=== PATIENT | female | born 1975 | race Hispanic/Latino ===

== ENCOUNTER 2022-03-27 13:20 | Emergency (ER) | payer OTHER ==
[~2022-03-27] VITALS: Ht 157.5 cm; Wt 63.5 kg
[2022-03-27 14:28] LABS: APPEARANCE,URINE CLEAR (CLEAR); BILIRUBIN,URINE NEGATIVE (NEGATIVE); COLOR,URINE YELLOW (YELLOW); GLUCOSE, URINE (UA) NEGATIVE (NEGATIVE); KETONES,URINE NEGATIVE (NEGATIVE); LEUKOCYTE ESTERASE ,URINE NEGATIVE Leu/uL (NEGATIVE); NITRATE,URINE NEGATIVE (NEGATIVE); OCCULT BLOOD,URINE NEGATIVE (NEGATIVE); PROTEIN,URINE NEGATIVE (NEGATIVE); UROBILINOGEN,URINE 0.2 mg/dL (0.2-1.0)
[2022-03-27 14:34] LABS: BASOPHILS % (AUTO) 0.8 % (0.0-5.0); EOSINOPHILS % (AUTO) 0.5 % (0.0-8.0); HEMATOCRIT 34.3 % (36-48); MEAN CORPUSCULAR HEMOGLOBIN 28.6 pg (27.0-33.0); MEAN CORPUSCULAR HGB CONC 32.7 g/dL (32.0-36.0); MEAN CORPUSCULAR VOLUME 87.5 fL (79-99); MONOCYTES % (AUTO) 6.5 % (3.0-13.0); NEUTROPHILS % (AUTO) 81.8 % (40.0-77.0); PLATELET COUNT (AUTO) 322 K/uL (130-400); RED BLOOD CELL COUNT(AUTO) 3.92 MIL/uL (4.00-5.50); WHITE BLOOD COUNT (AUTO) 10.1 K/uL (4.8-10.8)
[2022-03-27 14:46] LABS: CREATININE 0.7 mg/dL (0.5-1.5); POTASSIUM 3.7 mmol/L (3.5-5.1)
[2022-03-27 14:51] LABS: ALBUMIN 3.9 g/dL (3.5-5.0); TOTAL PROTEIN, SERUM 7.8 g/dL (6.0-8.3)
[2022-03-27] MEDS ORDERED: BENZ-39 PO (15:00)
[2022-03-27] MEDS ORDERED: IBUP-2070 PO (15:00)
[2022-03-27] MEDS ORDERED: MECL-226 PO (15:00)
[2022-03-27] MEDS ORDERED: ONDA4TAB10 PO (15:00)
[2022-03-27] MEDS ORDERED: OSEL75 PO (15:00)
== END 2022-03-27 15:09 | disposition home or self-care (01) ==
LOC: EDH 13:20
DX: J10.1 Influenza due to other identified influenza virus with other respiratory manifestations (principal); B34.9 Viral infection, unspecified; R42 Dizziness and giddiness; R11.2 Nausea with vomiting, unspecified; Z20.822 Contact with and (suspected) exposure to COVID-19
CPT/HCPCS: 99284; 87635; 80053; 85025; 87804 ×2; 81003; 36415; 93005; C9803

== ENCOUNTER 2022-05-24 18:56 | Emergency (ER) | payer OTHER ==
[~2022-05-24] VITALS: Ht 157.5 cm; Wt 68.0 kg
[~2022-05-24 18:56] MED LIST: BENZ-39 PO; IBUP-2070 PO; MECL-226 PO; ONDA4TAB10 PO; OSEL75 PO
[2022-05-24 19:02] VITALS: BP 154/88
[2022-05-24] MEDS ORDERED: 0.9%NACL 1000ML 1,000 ML IV ONE (19:30)
[2022-05-24] MEDS ORDERED: ONDANSETRON 4MG INJ IVP ONE (19:30)
[2022-05-24] MEDS ORDERED: MORPHINE 4 MG SYG IVP ONE (19:30)
[2022-05-24 20:23] LABS: BASOPHILS % (AUTO) 0.8 % (0.0-5.0); EOSINOPHILS % (AUTO) 4.6 % (0.0-8.0); HEMATOCRIT 34.1 % (36-48); MEAN CORPUSCULAR HGB CONC 32.3 g/dL (32.0-36.0); MEAN CORPUSCULAR VOLUME 86.8 fL (79-99); MONOCYTES % (AUTO) 7.3 % (3.0-13.0); NEUTROPHILS % (AUTO) 65.9 % (40.0-77.0); PLATELET COUNT (AUTO) 319 K/uL (130-400); RED BLOOD CELL COUNT(AUTO) 3.93 MIL/uL (4.00-5.50); RED CELL DISTRIBUTION WIDTH 12.8 % (11.0-15.5); WHITE BLOOD COUNT (AUTO) 9.2 K/uL (4.8-10.8)
[2022-05-24 20:44] LABS: CREATININE 0.8 mg/dL (0.5-1.5); POTASSIUM 3.8 mmol/L (3.5-5.1)
[2022-05-24 20:48] LABS: ALBUMIN 3.8 g/dL (3.5-5.0); TOTAL PROTEIN, SERUM 7.5 g/dL (6.0-8.3)
[2022-05-24] MEDS ORDERED: ONDA4TAB10 PO (22:27)
== END 2022-05-24 22:38 | disposition home or self-care (01) ==
LOC: EDH 18:56
DX: K80.20 Calculus of gallbladder without cholecystitis without obstruction (principal); R11.2 Nausea with vomiting, unspecified; Z79.899 Other long term (current) drug therapy
CPT/HCPCS: 36415; 76705; 80053; 83605; 83690; 85025

== ENCOUNTER 2023-07-06 19:48 | Observation (INO) | payer OTHER ==
[~2023-07-06] VITALS: Ht 154.9 cm; Wt 68.3 kg
[2023-07-06] MEDS: MORPHINE 4 MG SYG IM SCH (22:09)
[2023-07-06] MEDS ORDERED: IBUP-2070 PO (22:32)
[2023-07-07] MEDS ORDERED: ACETAMINOPHEN 325 MG TAB PO PRN ×2 (01:00)
[2023-07-07] MEDS ORDERED: ONDANSETRON 4MG INJ IV PRN (01:00)
[2023-07-07 04:35] VITALS: BP 138/87; PULSE 67; RESP 18; O2SAT 100
[2023-07-07] MEDS: HYDROCODONE/ACETAMINOPHEN 5/325 MG TAB PO PRN (05:00)
[2023-07-07 05:54] LABS: BASOPHILS # (AUTO) 0.08 K/uL (0.00-0.20); EOSINOPHILS # (AUTO) 0.11 K/uL (0.00-0.70); EOSINOPHILS % (AUTO) 1.3 % (0.0-8.0); HEMATOCRIT 33.8 % (36-48); IMMATURE GRANULOCYTE ABSOLUTE 0.03 K/uL (0-1); LYMPHOCYTES % (AUTO) 24.6 % (21.0-51.0); MEAN CORPUSCULAR HGB CONC 32.8 g/dL (32.0-36.0); MEAN CORPUSCULAR VOLUME 88.3 fL (79-99); MONOCYTES # (AUTO) 0.8 K/uL (0.1-1.0); MONOCYTES % (AUTO) 9.7 % (3.0-13.0); NEUTROPHILS # (AUTO) 5.2 K/uL (1.8-7.7); PLATELET COUNT (AUTO) 323 K/uL (130-400); RED BLOOD CELL COUNT(AUTO) 3.83 MIL/uL (4.00-5.50); WHITE BLOOD COUNT (AUTO) 8.2 K/uL (4.8-10.8)
[2023-07-07 06:08] LABS: ALBUMIN 3.6 g/dL (3.5-5.0); BILIRUBIN,TOTAL 0.5 mg/dL (0.2-1.0); CREATININE 0.7 mg/dL (0.5-1.0); POTASSIUM 3.6 mmol/L (3.5-5.1); TOTAL PROTEIN, SERUM 7.1 g/dL (6.0-8.3)
[2023-07-07 08:00] VITALS: BP 130/84; PULSE 73; RESP 18
[2023-07-07] MEDS: FAMOTIDINE 20MG TAB PO SCH (08:53)
[2023-07-07] MEDS: MORPHINE 2 MG SYG IV PRN (11:57)
[2023-07-07 12:00] VITALS: BP 144/89; PULSE 71; RESP 18
[2023-07-07 16:00] VITALS: BP 135/85; PULSE 76; RESP 18
[2023-07-07 20:00] VITALS: BP 139/85; PULSE 85; RESP 20; O2SAT 100
[2023-07-08] VITALS: BP 134/68; PULSE 71; RESP 17
[2023-07-08 04:00] VITALS: BP 128/68; PULSE 78; RESP 19
[2023-07-08 04:30] LABS: MEAN CORPUSCULAR HEMOGLOBIN 28.6 pg (27.0-33.0); MEAN CORPUSCULAR HGB CONC 32.5 g/dL (32.0-36.0); MEAN CORPUSCULAR VOLUME 87.9 fL (79-99); RED BLOOD CELL COUNT(AUTO) 3.64 MIL/uL (4.00-5.50); WHITE BLOOD COUNT (AUTO) 7.2 K/uL (4.8-10.8)
[2023-07-08 04:41] LABS: CREATININE 0.7 mg/dL (0.5-1.0); POTASSIUM 3.6 mmol/L (3.5-5.1)
[2023-07-08] MEDS ORDERED: CYCL5TAB PO (06:59)
[2023-07-08] MEDS ORDERED: IBUP-2070 PO (06:59)
[2023-07-08 07:50] VITALS: O2SAT 98
[2023-07-08 08:00] VITALS: BP 116/69; PULSE 74; RESP 18
[2023-07-08] MEDS ORDERED: ACET-2079 PO (08:11)
[2023-07-08] MEDS ORDERED: FAMO20TA8 PO (08:14)
== END 2023-07-08 15:30 | disposition home or self-care (01) ==
LOC: EDH 19:48 → EDHIP 19:49 → 4CH 07-07 04:51
PROVIDERS: ADMIT Hospitalist; ATTEND Hospitalist
DX: S83.91XA Sprain of unspecified site of right knee, initial encounter (principal); W18.39XA Other fall on same level, initial encounter; Y93.39 Activity, other involving climbing, rappelling and jumping off; Y92.89 Other specified places as the place of occurrence of the external cause; Y99.8 Other external cause status; Z98.890 Other specified postprocedural states; Z79.899 Other long term (current) drug therapy
CPT/HCPCS: 96372; 99285; 73562; 96374; 83735; 80053; 85025; 36415 ×2; 76882; 73721; 97161; 97116 ×2; 80048; 85027; 76536; 97530 ×2; J2270 ×2; G0378 ×37

== ENCOUNTER 2023-11-11 15:45 | Emergency (ER) | payer OTHER ==
[~2023-11-11] VITALS: Ht 154.9 cm; Wt 68.9 kg
[~2023-11-11 15:45] MED LIST changes: +ACET-2079 PO; -BENZ-39 PO; +CYCL5TAB PO; +FAMO20TA8 PO; -MECL-226 PO; -ONDA4TAB10 PO; -OSEL75 PO
[2023-11-11] MEDS: LACTATED RINGERS 1000ML IV STA (16:26)
[2023-11-11 16:29] LABS: BASOPHILS # (AUTO) 0.07 K/uL (0.00-0.20); EOSINOPHILS # (AUTO) 0.18 K/uL (0.00-0.70); EOSINOPHILS % (AUTO) 2.5 % (0.0-8.0); HEMATOCRIT 31.8 % (36-48); IMMATURE GRANULOCYTE ABSOLUTE 0.03 K/uL (0-1); LYMPHOCYTES # (AUTO) 2.1 K/uL (1.0-4.8); LYMPHOCYTES % (AUTO) 28.5 % (21.0-51.0); MEAN CORPUSCULAR HEMOGLOBIN 28.3 pg (27.0-33.0); MEAN CORPUSCULAR HGB CONC 33.3 g/dL (32.0-36.0); MONOCYTES # (AUTO) 0.4 K/uL (0.1-1.0); MONOCYTES % (AUTO) 5.8 % (3.0-13.0); NEUTROPHILS # (AUTO) 4.5 K/uL (1.8-7.7); NEUTROPHILS % (AUTO) 61.8 % (40.0-77.0); PLATELET COUNT (AUTO) 356 K/uL (130-400); RED BLOOD CELL COUNT(AUTO) 3.74 MIL/uL (4.00-5.50); RED CELL DISTRIBUTION WIDTH 12.8 % (11.0-15.5); WHITE BLOOD COUNT (AUTO) 7.3 K/uL (4.8-10.8)
[2023-11-11 16:39] LABS: CREATININE 0.9 mg/dL (0.5-1.0); POTASSIUM 3.9 mmol/L (3.5-5.1)
[2023-11-11 17:51] LABS: SARS-CoV-2, RNA, NAAT NEGATIVE SARS CoV-2 (NEGATIVE)
[2023-11-11 17:56] LABS: INFLUENZA TYPE A Negative For Type A (NEGATIVE); INFLUENZA TYPE B Negative For Type B (NEGATIVE)
[2023-11-11 19:07] LABS: APPEARANCE,URINE CLEAR (CLEAR); BILIRUBIN,URINE NEGATIVE (NEGATIVE); COLOR,URINE COLORLESS (YELLOW); GLUCOSE, URINE (UA) NEGATIVE (NEGATIVE); KETONES,URINE NEGATIVE (NEGATIVE); LEUKOCYTE ESTERASE ,URINE NEGATIVE Leu/uL (NEGATIVE); NITRATE,URINE NEGATIVE (NEGATIVE); OCCULT BLOOD,URINE NEGATIVE (NEGATIVE); PH,URINE 7.5 (5.0-8.0); PROTEIN,URINE NEGATIVE (NEGATIVE); UROBILINOGEN,URINE 0.2 mg/dL (0.2-1.0)
[2023-11-11 19:09] LABS: ADD UA MICROSCOPIC YES
[2023-11-11 19:59] VITALS: BP 104/67; PULSE 74; RESP 18; O2SAT 98
[2023-11-11 20:01] LABS: RBC,URINE 0-1 /HPF (0-1); SQUAMOUS EPITHELIAL CELL,UR RARE /HPF (0-2); WBC,URINE 0-1 /HPF (0-1)
== END 2023-11-11 20:15 | disposition home or self-care (01) ==
LOC: EDH 15:45
DX: R55 Syncope and collapse (principal); E86.0 Dehydration; R73.9 Hyperglycemia, unspecified; F41.9 Anxiety disorder, unspecified; F32.A Depression, unspecified; Z20.822 Contact with and (suspected) exposure to COVID-19; Z79.899 Other long term (current) drug therapy; Z90.49 Acquired absence of other specified parts of digestive tract
CPT/HCPCS: 99285; 96360; 87635; 84484; 80048; 85025; 86850; 86900; 86901; 87804 ×2; 81001; 36415; 93005; J7120

== ENCOUNTER 2024-06-19 17:50 | Emergency (ER) | payer OTHER ==
[~2024-06-19] VITALS: Ht 154.9 cm; Wt 68.9 kg
[~2024-06-19 17:50] MED LIST changes: -CYCL5TAB PO; +CYCL5TAB3 PO
--- NOTE | 2024-06-19 18:07 | NUR ---
12 LEAD EKG COMPLETED BY JONAS ALSTON FOR C/O CHEST PAIN
--- NOTE | 2024-06-19 18:19 | ERN ---
General Chief Complaint: Anxiety/Panic Attack Stated Complaint: JAW AND CHEST PAIN Time Seen by MD: 17:53 Source: patient History of Present Illness Initial Comments IS A 49-YEAR-OLD FEMALE COMING IN WITH MULTIPLE COMPLAINTS. PATIENT STATES SHE WAS STARTED ON THREE DIFFERENT ANTIBIOTICS FOR A MOLAR INFECTION AND STATES THAT SHE FEELS OVERWHELMED IN HIS HERE FOR FURTHER EVALUATION PATIENT ALSO STATES THAT SHE FEELS THAT SHE HAS SOME CHEST DISCOMFORT WHICH IS CAUSING HER TO FEEL VERY SHORT OF BREATH. Allergies: Coded Allergies: No Known Drug Allergies (Verified Allergy, 04/22/12) Home Meds Active Scripts Famotidine (Famotidine) 20 Mg Tablet, 20 MG PO BID, #60 TAB 0 Refills Prov:ANURAG CUNNINGHAM Vu AGPCNP 07/08/23 Acetaminophen with Codeine (Acetaminophen-Cod #3 Tablet) 300 Mg-30 Mg Tablet, 1 EACH PO Q6HPRN PRN for SEVERE PAIN (7-10), #15 TAB Prov:CUNNINGHAMANURAG Vu AGPCNP 07/08/23 Cyclobenzaprine HCl (Cyclobenzaprine HCl) 5 Mg Tablet, 5 MG PO Q6HPRN PRN for PAIN LEVEL 1 TO 5, #15 TAB 0 Refills Prov:CUNNINGHAMANURAG Vu AGPCNP 07/08/23 Ibuprofen (Ibuprofen) 600 Mg Tablet, 600 MG PO Q6H PRN for PAIN, #30 TAB Prov:ANURAG CUNNINGHAM Vu AGPCNP 07/08/23 Past Medical History Past Medical History: Anxiety, Depression Past Surgical History: Cholecystectomy, Other Surgical History Other: D&C Family History Family History: Negative Social History Social History: Negative, Lives with family Female( History) History: Not Applicable ROS Dictation CONSTITUTIONAL: NO CHILLS, NO FEVER, NO WEAKNESS, NO DIAPHORESIS, NO MALAISE. HEAD/FACE: NO SIGNS OF TRAUMA. EENT: NO EYE PAIN, NO BLURRED VISION, NO TEARING, NO DOUBLE VISION, NO EAR PAIN, NO EAR DISCHARGE, NO NOSE PAIN, NO NASAL CONGESTION, NO THROAT PAIN, NO T HROAT SWELLING, NO MOUTH PAIN. RESPIRATORY: NO COUGH, NO ORTHOPNEA, NO SOB, NO STRIDOR, NO WHEEZING. CARDIOVASCULAR: NO CHEST PAIN, NO EDEMA, NO PALPITATIONS, NO SYNCOPE. GASTROINTESTINAL/ABDOMINAL: NO ABDOMINAL PAIN, NO CONSTIPATION, NO DIARRHEA, N O NAUSEA, NO VOMITING. GENITOURINARY: NO ABNORMAL DISCHARGE, NO DYSURIA, NO FREQUENT URINATION, NO HEMATURIA. NO COMPLAINTS OF PAIN IN THE GENITALS. MUSCULOSKELETAL: NO BACK PAIN, NO GOUT, NO JOINT PAIN, NO JOINT SWELLING, NO MUSCLE PAIN, NO MUSCLE STIFFNESS, NO NECK PAIN. INTEGUMENTARY: NO CHANGE IN COLOR, NO CHANGE IN HAIR/NAILS, NO DRYNESS, NO LESION, NO LUMPS, NO RASH. NEUROLOGICAL/PSYCH: NO ANXIETY, NOT DEPRESSED, NO EMOTIONAL PROBLEM, NO HEADACHE, NO NUMBNESS, NO PRE-EXISTING DEFICIT, NO HISTORY OF SEIZURES, NO TREMORS, NO WEAKNESS. HEMATOLOGIC/LYMPHATIC: NOT ANEMIC, NO HISTORY OF BLOOD CLOTS, NO APPARENT BLEEDING, NO BRUISING, GLANDS NOT SWOLLEN. ALL SYSTEMS NEGATIVE, EXCEPT NOTED. Physical Exam Physical Exam Dictation VITAL SIGNS: REVIEWED. GENERAL APPEARANCE: ALERT, ORIENTED X3, NO ACUTE DISTRESS, OBESE. HEAD AND FACE: NON-TRAUMATIC. EYES: PERRL, PINK CONJUNCTIVAS, EYELID NO TRAUMA, ANTERIOR CHAMBER CLEAR. EARS: PINNAS INTACT AND NO SIGNS OF TRAUMA OR ERYTHEMA. EAR CANALS CLEAR AND NO DISCHARGE. TMS NO ERYTHEMA. NOSE: NO DISCHARGE, NO BLEEDING. OROPHARYNX: MOUTH NORMAL, TEETH NO CARIES, TONGUE PINK. PHARYNX CLEAR, NO ERYTHEMA. TONSILS NO EXUDATES, NO ABSCESSES NOTED. MUCOUS MEMBRANE MOIST. NECK: SUPPLE, NON-TENDER, NO THYROMEGALY, NO MASSES, NO JVD, NO BRUITS. BREAST: DEFERRED. CHEST: NO TENDERNESS, NO CREPITUS, NO PARADOXICAL MOVEMENT, NO RETRACTIONS. LUNGS: CLEAR, WELL-VENTILATED, SYMMETRIC, NO RALES, NO WHEEZING, NO RHONCHI, NO STRIDOR, GOOD BREATH SOUNDS BILATERALLY. HEART: REGULAR RATE, REGULAR RHYTHM, NO MURMUR, NO GALLOPS. VASCULAR: NO PERIPHERAL EDEMA. ABDOMEN: SOFT, POSITIVE BOWEL SOUNDS, NONDISTENDED, NO GUARDING, NONTENDER, NO REBOUND, NO MASSES NO HEPATOMEGALY, NO SPLENOMEGALY, NO BROWN'S SIGN, NO HERNIAS. RECTAL: DEFERRED. GENITAL: DEFERRED. NEUROLOGICAL: NORMAL SPEECH, GROSS MOTOR FUNCTION INTACT, GROSS SENSORY FUNCTION INTACT. MUSCULOSKELETAL: NECK NONTENDER, FULL RANGE OF MOTION, BACK NONTENDER, FULL RANGE OF MOTION. EXTREMITIES: NONTENDER, FULL RANGE OF MOTION. SKIN: COLOR PINK, DRY, NO TURGOR, NO RASH, NO LACERATIONS, NO ABRASIONS, NO CONTUSIONS. LYMPHATICS: DEFERRED. MDM MDM: DIFFERENTIAL DIAGNOSIS: RATIONALE: TESTS CONSIDERED AND ORDERED SECONDARY TO SHARED DECISION MAKING INCLUDE: PREVIOUS OUTSIDE RECORDS REVIEWED: OLD ER VISITS. RISK OF COMPLICATION AND/OR MORBIDITY OR MORTALITY OF PATIENT MANAGEMENT: NONE MEDICATIONS-PER MEDICATION RECONCILIATION NEED FOR HOSPITALIZATION: PATIENT DOES NOT MEET CRITERIA FOR HOSPITALIZATION. NEED FOR EMERGENCY MAJOR/MINOR SURGERY: NO THERE ARE NO SOCIAL CONCERNS WITH THIS PATIENT. PRESCRIPTION DRUG MANAGEMENT PRESCRIPTIONS WILL INCLUDE SYMPTOMATIC CARE PATIENT'S PRIOR EXTERNAL MEDICAL RECORDS FROM OTHER ER VISITS WERE REVIEWED BY ME INDICATED. PRIOR TESTING AND RESULTS FROM PREVIOUS VISITS WERE REVIEWED. PRIOR TESTS WERE TAKEN INTO ACCOUNT WITH MEDICAL DECISION MAKING AND RESOURCE UTILIZATION, INDEPENDENT HISTORIAN/HISTORIANS WERE USED TO OBTAIN COMPLETE MEDICAL HISTORY. I INDEPENDENTLY INTERPRETED THE TEST THAT WERE PERFORMED, RESULTS WERE REVIEWED BY ME AND CONSIDERED FINDINGS ON RADIOLOGY IF ORDERED. MEDICAL MANAGEMENT AND EXAMINATION INTERPRETATION DISCUSSIONS WERE HAD BY ME WITH OTHER QUALIFIED HEALTHCARE PROFESSIONALS INDICATED FOR THE PATIENT'S CARE. ED Course Orders Procedure Category Date Status Time 12 Lead Ekg Tracing- EKG 06/19/24 Logged Technical 18:08 Cbc With Differential LAB 06/19/24 Logged 18:07 Prothrombin Time With LAB 06/19/24 Logged INR 18:07 B-Type Natriuretic LAB 06/19/24 Logged Peptide 18:07 Chest 1vw RAD 06/19/24 Logged 18:07 12 Lead Ekg Tracing- EKG 06/19/24 Logged Technical 18:07 Lactated Ringers PHA 06/19/24 Complete 1000ml (Lactated 18:30 Magnesium LAB 06/19/24 Logged 18:07 Creatine Kinase, Total LAB 06/19/24 Logged 18:07 Troponin I High LAB 06/19/24 Logged Sensitivity 18:07 Urinalysis Profile LAB 06/19/24 Logged 18:07 Partial LAB 06/19/24 Logged Thromboplastin Time 18:07 Basic Metabolic Panel LAB 06/19/24 Logged 18:07 Diazepam 2 Mg Tab PHA 06/19/24 Complete (Valium 2 Mg Tab) 18:30 Drug Screen Urine LAB 06/19/24 Logged 18:08 Current Medications Medications (Trade) Dose Ordered Sig/Jeremi Route PRN Reason Start Time Stop Time Status Last Admin Dose Admin Diazepam (VALium 2 mg Tab) 2 mg ONCE ONCE PO 06/19/24 18:30 06/19/24 18:31 DC Lactated Ringer's 1,000 ml @ 0 mls/hr ONCE ONCE IV 06/19/24 18:30 06/19/24 18:31 DC Vital Signs Date Time Temp Pulse Resp B/P (MAP) Pulse Ox O2 Delivery O2 Flow Rate FiO2 06/19/24 17:56 99.0 96 18 186/100 97 Room Air 0 DX & DISP Disposition: Other(Comment) (PATIENT CARE TRANSITIONED TO DR. Johnson) Departure Condition: Stable Referrals: MICHAEL HOOD MD (PCP) DAVID DUQUE MD Jun 19, 2024 18:19
--- NOTE | 2024-06-19 19:00 | EKG ---
[facility] Test Date: 2024-06-19 Test Time: 17:59:12 Pat Name: MARISOL FREGOSO Department: [facility] Room: Gender: F Manager Spa: [id number] : [id number] Requested By: DAVID DUQUE Order Number: [id number] Reading MD: Leatha Leija Measurements Intervals [place] Rate: 89 P: 32 W[place]: 148 QRS: 22 QRSD: 78 T: 36 QT: 348 QTc: 425 Interpretive Statements Sinus rhythm Compared to ECG 11/11/2023 17:08:40 No significant changes Electronically Signed On 06-20-2024 14:35:08 [employer]ETHOD[employer] ARCHITECT by Leatha Leija Please click the below link to view image of tracing.
[2024-06-19 19:07] LABS: APPEARANCE,URINE CLEAR (CLEAR); BILIRUBIN,URINE NEGATIVE (NEGATIVE); COLOR,URINE COLORLESS (YELLOW); GLUCOSE, URINE (UA) NEGATIVE (NEGATIVE); KETONES,URINE NEGATIVE (NEGATIVE); LEUKOCYTE ESTERASE ,URINE NEGATIVE Leu/uL (NEGATIVE); NITRATE,URINE NEGATIVE (NEGATIVE); OCCULT BLOOD,URINE SMALL (NEGATIVE); PROTEIN,URINE NEGATIVE (NEGATIVE); UROBILINOGEN,URINE 0.2 mg/dL (0.2-1.0)
[2024-06-19 19:08] LABS: ADD UA MICROSCOPIC NO
[2024-06-19 19:09] LABS: BASOPHILS # (AUTO) 0.06 K/uL (0.00-0.20); BASOPHILS % (AUTO) 0.9 % (0.0-5.0); EOSINOPHILS # (AUTO) 0.27 K/uL (0.00-0.70); EOSINOPHILS % (AUTO) 4.1 % (0.0-8.0); IMMATURE GRANULOCYTE ABSOLUTE 0.02 K/uL (0-1); LYMPHOCYTES # (AUTO) 1.9 K/uL (1.0-4.8); LYMPHOCYTES % (AUTO) 28.8 % (21.0-51.0); MEAN CORPUSCULAR HEMOGLOBIN 27.6 pg (27.0-33.0); MEAN CORPUSCULAR HGB CONC 32.6 g/dL (32.0-36.0); MEAN CORPUSCULAR VOLUME 84.7 fL (79-99); MONOCYTES # (AUTO) 0.6 K/uL (0.1-1.0); MONOCYTES % (AUTO) 8.3 % (3.0-13.0); NEUTROPHILS # (AUTO) 3.8 K/uL (1.8-7.7); NEUTROPHILS % (AUTO) 57.6 % (40.0-77.0); PLATELET COUNT (AUTO) 357 K/uL (130-400); RED BLOOD CELL COUNT(AUTO) 4.13 MIL/uL (4.00-5.50); RED CELL DISTRIBUTION WIDTH 12.4 % (11.0-15.5); WHITE BLOOD COUNT (AUTO) 6.6 K/uL (4.8-10.8)
[2024-06-19 19:13] LABS: AMPHET/METH SCREEN,URINE NEGATIVE (NEGATIVE); BARBITURATE SCREEN, URINE NEGATIVE (NEGATIVE); BENZODIAZEPINES SCREEN,URINE NEGATIVE (NEGATIVE); CANNABINOID SCREEN,URINE NEGATIVE (NEGATIVE); COCAINE SCREEN,URINE NEGATIVE (NEGATIVE); OPIATE SCREEN,URINE NEGATIVE (NEGATIVE); PHENCYCLIDINE SCREEN,URINE NEGATIVE (NEGATIVE)
[2024-06-19 19:16] LABS: CARBON DIOXIDE 32 mmol/L (21-32); CHLORIDE 102 mmol/L (101-111); CREATININE 0.7 mg/dL (0.5-1.0); GLOMERULAR FILTR. RATE CALC 105 mL/min (>90); GLUCOSE,RANDOM 109 mg/dL (70-105); INR 0.96 (0.85-1.15); POTASSIUM 3.9 mmol/L (3.5-5.1); PROTHROMBIN TIME 10.2 SEC (9.6-11.6); SODIUM SERUM 138 mmol/L (136-145); UREA NITROGEN, BLOOD 8 mg/dL (7-18)
[2024-06-19 19:25] LABS: B-TYPE NATRIURETIC PEPTIDE 34 pg/mL (0-100)
[2024-06-19 19:33] LABS: CREATINE KINASE, TOTAL 66 U/L (21-232)
[2024-06-19 19:47] VITALS: BP 124/67; PULSE 74; RESP 20; TEMP 98.6; O2SAT 100
[2024-06-19] MEDS ORDERED: HYD25 PO (19:48)
[2024-06-19] MEDS: diazePAM 2 MG TAB PO ONE (19:54)
[2024-06-19] MEDS: LACTATED RINGERS 1000ML 1,000 ML IV ONE (19:54)
--- NOTE | 2024-06-19 20:42 | HMCIMG ---
PORTABLE CHEST RADIOGRAPH INDICATION: ANXIETY COMPARISON: None FINDINGS: Heart size is normal. The pulmonary vascularity and patience appear normal. No abnormal pulmonary parenchymal opacity or consolidation identified. No significant pleural effusion noted. No pneumothorax detected. IMPRESSION: No radiographic evidence for any acute cardiopulmonary process.
== END 2024-06-19 19:58 | disposition home or self-care (01) ==
LOC: EDH 17:50
DX: F41.9 Anxiety disorder, unspecified (principal); Z90.49 Acquired absence of other specified parts of digestive tract
CPT/HCPCS: 99285; 71045; 82550; 83735; 84484; 80048; 83880; 80305; 85025; 85610; 85730; 81003; 36415; 93005; J7120